=== PATIENT | male | born 2000 | race Caucasian/White ===

== ENCOUNTER 2022-04-08 08:06 | Inpatient (IN) | payer OTHER ==
[~2022-04-08] VITALS: Ht 180.3 cm; Wt 79.7 kg
[2022-04-08 10:39] LABS: HEMATOCRIT 43.3 % (42.0-52.0); HEMOGLOBIN 14.4 g/dl (13.5-17.5); MEAN CORPUSCULAR HEMOGLOBIN 28.5 pg (27.0-33.0); MEAN CORPUSCULAR HGB CONC 33.3 g/dl (32.0-36.5); MEAN CORPUSCULAR VOLUME 85.7 fl (80.0-96.0); PLATELET COUNT, AUTOMATED 297 10^3/uL (150-450); RED BLOOD COUNT 5.05 10^6/uL (4.30-6.10); WHITE BLOOD COUNT 11.1 10^3/uL (4.0-10.0)
[2022-04-08 11:01] LABS: BARBITURATES URINE NEGATIVE (NEGATIVE)
[2022-04-08 11:02] LABS: AMPHETAMINES LEVEL URINE NEGATIVE (NEGATIVE); BENZODIAZEPINES URINE NEGATIVE (NEGATIVE); CANNABINOIDS URINE NEGATIVE (NEGATIVE); COCAINE METABOLITE URINE NEGATIVE (NEGATIVE); METHADONE URINE NEGATIVE (NEGATIVE); OPIATES URINE NEGATIVE (NEGATIVE); PHENCYCLIDINE URINE NEGATIVE (NEGATIVE)
[2022-04-08 11:03] LABS: ETHYL ALCOHOL (ETHANOL) 0.004 % (0.000-0.010)
[2022-04-08 11:05] LABS: BILIRUBIN,DIRECT 0.4 MG/DL (<0.4); CPK CREATINE PHOSPHOKINASE 52 U/L (46-171); SALICYLATE LEVEL < 3.0 MG/DL (<30)
[2022-04-08 11:06] LABS: ACETAMINOPHEN LEVEL < 2.0 UG/ML (10.0-20.0); ALBUMIN 3.8 G/DL (3.2-5.2); ALKALINE PHOSPHATASE 84 U/L (46-116); ALT/SGPT < 9 U/L (7.0-40); AST/SGOT 13 U/L (<34); BILIRUBIN,TOTAL 1.3 MG/DL (0.3-1.2); BLOOD UREA NITROGEN 9 MG/DL (9-23); CALCIUM LEVEL 9.7 MG/DL (8.5-10.1); CARBON DIOXIDE LEVEL 29 MMOL/L (20-31); CHLORIDE LEVEL 102 MMOL/L (98-107); CREATININE FOR GFR 0.94 MG/DL (0.70-1.30); GLUCOSE, FASTING 99 MG/DL (60-100); POTASSIUM SERUM 3.6 MMOL/L (3.5-5.1); SODIUM LEVEL 140 MMOL/L (136-145); TOTAL PROTEIN 7.2 G/DL (5.7-8.2)
[2022-04-08 11:07] LABS: THYROID STIMULATING HORMONE 1.671 uIU/ML (0.48-4.17)
[2022-04-08] MEDS ORDERED: MOM 30ML SUSPENSION UDC PO PRN (15:35)
[2022-04-08] MEDS ORDERED: HOME MED LIST COMPLETE! XX SCH (16:40)
[2022-04-09 06:33] VITALS: BP 143/63
[2022-04-09] MEDS: NICOTINE 21MG/24HR 1 EA TRANSDERMAL TD SCH (09:00)
[2022-04-09] MEDS: ESCITALOPRAM OXALATE 10 MG TAB (LEXAPRO) PO SCH (10:59)
[2022-04-09 16:24] VITALS: BP 131/60
[2022-04-10 06:32] VITALS: BP 113/59
[2022-04-10] MEDS: ESCITALOPRAM OXALATE 10 MG TAB (LEXAPRO) PO SCH (08:26)
[2022-04-10] MEDS: NICOTINE 21MG/24HR 1 EA TRANSDERMAL TD SCH (08:27)
[2022-04-10 19:34] VITALS: BP 128/77
[2022-04-11 06:23] VITALS: BP 129/67
[2022-04-11] MEDS: NICOTINE 21MG/24HR 1 EA TRANSDERMAL TD SCH (08:48)
[2022-04-11] MEDS: ESCITALOPRAM OXALATE 10 MG TAB (LEXAPRO) PO SCH (08:48)
[2022-04-11 16:43] VITALS: BP 125/64
[2022-04-12 06:23] VITALS: BP 122/61
[2022-04-12] MEDS: NICOTINE 21MG/24HR 1 EA TRANSDERMAL TD SCH (09:00)
[2022-04-12] MEDS: ESCITALOPRAM OXALATE 10 MG TAB (LEXAPRO) PO SCH (09:17)
[2022-04-12 16:25] VITALS: BP 133/68
[2022-04-13 06:19] VITALS: BP 116/16
[2022-04-13] MEDS: PROPRANOLOL 10 MG TAB PO PRN (08:41)
[2022-04-13] MEDS: NICOTINE 21MG/24HR 1 EA TRANSDERMAL TD SCH (08:42)
[2022-04-13] MEDS: ESCITALOPRAM OXALATE 10 MG TAB (LEXAPRO) PO SCH (08:42)
[2022-04-13 16:47] VITALS: BP 118/63
[2022-04-13] MEDS: hydrOXYzine 50 MG TAB PO PRN (20:22)
[2022-04-13] MEDS: traZODone 50 MG TAB PO PRN (22:01)
[2022-04-14 06:09] VITALS: BP 135/63
[2022-04-14] MEDS: NICOTINE 21MG/24HR 1 EA TRANSDERMAL TD SCH (09:00)
[2022-04-14] MEDS: ESCITALOPRAM OXALATE 10 MG TAB (LEXAPRO) PO SCH (09:07)
[2022-04-14] MEDS: hydrOXYzine 50 MG TAB PO PRN ×2 (09:08→15:08)
[2022-04-14 18:20] VITALS: BP 119/58
[2022-04-14] MEDS: traZODone 50 MG TAB PO PRN (22:28)
[2022-04-15 06:06] VITALS: BP 139/72
[2022-04-15] MEDS: NICOTINE 21MG/24HR 1 EA TRANSDERMAL TD SCH (09:00)
[2022-04-15] MEDS: ESCITALOPRAM OXALATE 5MG TABLET (LEXAPRO) PO SCH (09:13)
[2022-04-15] MEDS: hydrOXYzine 50 MG TAB PO PRN ×2 (12:37→20:02)
[2022-04-15] MEDS: MAALOX 30 ML SUSP *UDC PO PRN (16:09)
[2022-04-15 19:06] VITALS: BP 147/63
[2022-04-15] MEDS: RAMELTEON 8 MG TAB (ROZEREM) PO PRN (21:09)
[2022-04-16 06:24] VITALS: BP 121/55
[2022-04-16] MEDS: ESCITALOPRAM OXALATE 5MG TABLET (LEXAPRO) PO SCH (08:32)
[2022-04-16] MEDS: NICOTINE 21MG/24HR 1 EA TRANSDERMAL TD SCH (08:33)
[2022-04-16] MEDS: hydrOXYzine 50 MG TAB PO PRN ×2 (14:31→20:42)
[2022-04-16 18:39] VITALS: BP 113/65
[2022-04-16] MEDS: traZODone 50 MG TAB PO PRN (23:34)
[2022-04-17 06:41] VITALS: BP 125/69
[2022-04-17] MEDS: NICOTINE 21MG/24HR 1 EA TRANSDERMAL TD SCH (08:15)
[2022-04-17] MEDS: ESCITALOPRAM OXALATE 5MG TABLET (LEXAPRO) PO SCH (08:16)
[2022-04-17] MEDS: MAALOX 30 ML SUSP *UDC PO PRN (08:54)
[2022-04-17] MEDS: hydrOXYzine 50 MG TAB PO PRN ×2 (11:24→20:49)
[2022-04-17] MEDS: PROPRANOLOL 10 MG TAB PO PRN (17:10)
[2022-04-17 19:35] VITALS: BP 129/69
[2022-04-17] MEDS ORDERED: OLANZapine ORAL DISINTEGRATING TAB 5MG PO ONE (19:35)
[2022-04-17] MEDS: traZODone 50 MG TAB PO PRN (22:26)
[2022-04-18 06:28] VITALS: BP 132/87
[2022-04-18] MEDS: NICOTINE 21MG/24HR 1 EA TRANSDERMAL TD SCH (09:00)
[2022-04-18] MEDS: FLUoxetine 20MG CAP PO SCH (10:05)
[2022-04-18] MEDS ORDERED: ONDANSETRON 4MG TAB PO PRN (12:30)
[2022-04-18 17:30] VITALS: BP 150/91
[2022-04-18] MEDS: hydrOXYzine 50 MG TAB PO PRN (18:18)
[2022-04-18] MEDS: ACETAMINOPHEN TAB 650MG DOSE (2X325MG) PO PRN (18:18)
[2022-04-18] MEDS: traZODone 50 MG TAB PO PRN (21:29)
[2022-04-19] MEDS: ACETAMINOPHEN TAB 650MG DOSE (2X325MG) PO PRN ×2 (06:24→17:40)
[2022-04-19 06:31] VITALS: BP 120/69
[2022-04-19 07:12] LABS: BASO % 0.3 % (0.0-1.0); EOS # 0.1 10^3/uL (0.0-0.5); EOS % 0.5 % (0.0-3.0); HEMATOCRIT 49.3 % (42.0-52.0); HEMOGLOBIN 16.2 g/dl (13.5-17.5); LYMPH # 1.3 10^3/uL (1.5-5.0); LYMPH % 11.2 % (24.0-44.0); MEAN CORPUSCULAR HEMOGLOBIN 28.2 pg (27.0-33.0); MEAN CORPUSCULAR HGB CONC 32.9 g/dl (32.0-36.5); MEAN CORPUSCULAR VOLUME 85.7 fl (80.0-96.0); MONO # 0.5 10^3/uL (0.0-0.8); MONO % 4.3 % (2.0-8.0); NEUTROPHILS % 83.5 % (36.0-66.0); PLATELET COUNT, AUTOMATED 312 10^3/uL (150-450); RED BLOOD COUNT 5.75 10^6/uL (4.30-6.10)
[2022-04-19 07:34] LABS: C REACTIVE PROTEIN QUANTITATIV < 0.40 MG/DL (<1.0); MAGNESIUM LEVEL 1.9 MG/DL (1.8-2.4)
[2022-04-19 07:35] LABS: BILIRUBIN,DIRECT 0.8 MG/DL (<0.4)
[2022-04-19 07:36] LABS: ALBUMIN 4.1 G/DL (3.2-5.2); ALKALINE PHOSPHATASE 86 U/L (46-116); ALT/SGPT < 9 U/L (7.0-40); AST/SGOT 9 U/L (<34); BILIRUBIN,TOTAL 2.4 MG/DL (0.3-1.2); BLOOD UREA NITROGEN 14 MG/DL (9-23); CALCIUM LEVEL 9.8 MG/DL (8.5-10.1); CARBON DIOXIDE LEVEL 31 MMOL/L (20-31); CHLORIDE LEVEL 98 MMOL/L (98-107); CREATININE FOR GFR 1.04 MG/DL (0.70-1.30); GLUCOSE, FASTING 102 MG/DL (60-100); POTASSIUM SERUM 4.2 MMOL/L (3.5-5.1); SODIUM LEVEL 138 MMOL/L (136-145); TOTAL PROTEIN 7.7 G/DL (5.7-8.2)
[2022-04-19] MEDS: NICOTINE 21MG/24HR 1 EA TRANSDERMAL TD SCH (09:00)
[2022-04-19 09:12] VITALS: BP 121/59
[2022-04-19] MEDS: FLUoxetine 20MG CAP PO SCH (09:45)
[2022-04-19] MEDS: hydrOXYzine 50 MG TAB PO PRN ×2 (12:47→19:29)
[2022-04-19] MEDS ORDERED: ISOVUE-370 76% 100ML VIAL As Ordered ONE (13:41)
[2022-04-19 17:46] VITALS: BP 130/62
[2022-04-19] MEDS: traZODone 50 MG TAB PO PRN (22:39)
[2022-04-20 06:18] VITALS: BP 123/69
[2022-04-20] MEDS: NICOTINE 21MG/24HR 1 EA TRANSDERMAL TD SCH (08:10)
[2022-04-20] MEDS: FLUoxetine 20MG CAP PO SCH (08:10)
[2022-04-20] MEDS: hydrOXYzine 50 MG TAB PO PRN ×2 (11:49→20:34)
[2022-04-20 17:53] VITALS: BP 131/71
[2022-04-20 20:34] VITALS: BP 152/79
[2022-04-20] MEDS: RAMELTEON 8 MG TAB (ROZEREM) PO PRN (20:34)
[2022-04-20] MEDS: PROPRANOLOL 10 MG TAB PO PRN (20:34)
[2022-04-20] MEDS: traZODone 50 MG TAB PO PRN (20:34)
[2022-04-21 06:40] VITALS: BP 112/57
[2022-04-21] MEDS: FLUoxetine 20MG CAP PO SCH (08:58)
[2022-04-21] MEDS: NICOTINE 21MG/24HR 1 EA TRANSDERMAL TD SCH (09:00)
[2022-04-21] MEDS ORDERED: FLUoxetine 20MG CAP PO ONE (11:15)
[2022-04-21] MEDS: hydrOXYzine 50 MG TAB PO PRN ×2 (12:04→19:18)
[2022-04-21 17:45] VITALS: BP 126/70
[2022-04-21] MEDS: MAALOX 30 ML SUSP *UDC PO PRN (22:26)
[2022-04-22 06:39] VITALS: BP 121/55
[2022-04-22] MEDS: FLUoxetine 20MG CAP PO SCH (09:06)
[2022-04-22] MEDS: hydrOXYzine 50 MG TAB PO PRN ×2 (11:55→19:16)
[2022-04-22 16:57] VITALS: BP 102/59
[2022-04-22] MEDS: traZODone 50 MG TAB PO PRN (20:59)
[2022-04-23 06:46] VITALS: BP 132/62
[2022-04-23] MEDS: GABAPENTIN 300 MG CAP PO PRN ×2 (08:38→18:11)
[2022-04-23] MEDS: FLUoxetine 20MG CAP PO SCH (08:39)
[2022-04-23] MEDS: busPIRone 10 MG TAB PO SCH ×2 (08:39→20:25)
[2022-04-23] MEDS: hydrOXYzine 50 MG TAB PO PRN ×2 (11:23→20:25)
[2022-04-23 16:14] VITALS: BP 130/60
[2022-04-23] MEDS ORDERED: ARIPiprazole 2 MG TAB PO SCH (21:00)
[2022-04-23] MEDS: traZODone 50 MG TAB PO PRN (22:13)
[2022-04-24 06:36] VITALS: BP 114/56
[2022-04-24] MEDS: FLUoxetine 20MG CAP PO SCH (08:12)
[2022-04-24] MEDS: busPIRone 10 MG TAB PO SCH (08:12)
[2022-04-24] MEDS: GABAPENTIN 300 MG CAP PO PRN (08:13)
[2022-04-24] MEDS ORDERED: GABA-282 PO (09:56)
[2022-04-24] MEDS ORDERED: BUSP10TA PO (09:56)
[2022-04-24] MEDS ORDERED: TRAZ-252 PO (09:56)
[2022-04-24] MEDS ORDERED: FLUO40CA PO (09:56)
[2022-04-24] MEDS ORDERED: ABIL1TAB13 PO (09:56)
== END 2022-04-24 12:25 | disposition home or self-care (01) | DRG 880 ==
LOC: M ED 08:06 → M ED INP 15:35 → M PSY 17:55
PROVIDERS: ADMIT Student in an Organized Health Care Education/Training Program; ATTEND Student in an Organized Health Care Education/Training Program
DX: F41.1 Generalized anxiety disorder (principal); R45.851 Suicidal ideations; F43.20 Adjustment disorder, unspecified; F10.10 Alcohol abuse, uncomplicated; F17.200 Nicotine dependence, unspecified, uncomplicated; F12.90 Cannabis use, unspecified, uncomplicated; R50.9 Fever, unspecified; K44.9 Diaphragmatic hernia without obstruction or gangrene

== ENCOUNTER 2022-05-15 07:27 | Emergency (ER) | payer OTHER ==
[~2022-05-15] VITALS: Ht 180.3 cm; Wt 81.6 kg
[~2022-05-15 07:27] MED LIST: ABIL1TAB13 PO; BUSP10TA PO; FLUO40CA PO; GABA-282 PO; TRAZ-252 PO
[2022-05-15 08:10] LABS: HEMATOCRIT 45.8 % (42.0-52.0); HEMOGLOBIN 15.1 g/dl (13.5-17.5); MEAN CORPUSCULAR HEMOGLOBIN 28.7 pg (27.0-33.0); MEAN CORPUSCULAR VOLUME 86.9 fl (80.0-96.0); PLATELET COUNT, AUTOMATED 289 10^3/uL (150-450); RED BLOOD COUNT 5.27 10^6/uL (4.30-6.10); WHITE BLOOD COUNT 6.2 10^3/uL (4.0-10.0)
[2022-05-15 09:12] LABS: ETHYL ALCOHOL (ETHANOL) 0.003 % (0.000-0.010)
[2022-05-15 09:13] LABS: ACETAMINOPHEN LEVEL < 2.0 UG/ML (10.0-20.0)
[2022-05-15 09:14] LABS: ALBUMIN 4.2 G/DL (3.2-5.2); ALKALINE PHOSPHATASE 81 U/L (46-116); ALT/SGPT 13 U/L (7.0-40); AST/SGOT 15 U/L (<34); BILIRUBIN,DIRECT 0.4 MG/DL (<0.4); BILIRUBIN,TOTAL 1.2 MG/DL (0.3-1.2); BLOOD UREA NITROGEN 12 MG/DL (9-23); CALCIUM LEVEL 9.8 MG/DL (8.5-10.1); CARBON DIOXIDE LEVEL 31 MMOL/L (20-31); CHLORIDE LEVEL 104 MMOL/L (98-107); CREATININE FOR GFR 0.88 MG/DL (0.70-1.30); GLUCOSE, FASTING 92 MG/DL (60-100); POTASSIUM SERUM 4.2 MMOL/L (3.5-5.1); SALICYLATE LEVEL < 3.0 MG/DL (<30); SODIUM LEVEL 140 MMOL/L (136-145); TOTAL PROTEIN 7.2 G/DL (5.7-8.2)
[2022-05-15] MEDS ORDERED: FLUO40CA PO (10:17)
[2022-05-15] MEDS ORDERED: ARIP1TAB4 PO (10:17)
[2022-05-15] MEDS ORDERED: BUSP10TA PO (10:17)
[2022-05-15] MEDS ORDERED: GABA-282 PO (10:17)
[2022-05-15] MEDS ORDERED: TRAZ-252 PO (10:17)
[2022-05-15] MEDS ORDERED: HOME MED LIST COMPLETE! XX SCH (10:20)
[2022-05-15 12:35] LABS: BARBITURATES URINE NEGATIVE (NEGATIVE)
[2022-05-15 12:36] LABS: AMPHETAMINES LEVEL URINE NEGATIVE (NEGATIVE); BENZODIAZEPINES URINE NEGATIVE (NEGATIVE); CANNABINOIDS URINE NEGATIVE (NEGATIVE); COCAINE METABOLITE URINE NEGATIVE (NEGATIVE); METHADONE URINE NEGATIVE (NEGATIVE); OPIATES URINE NEGATIVE (NEGATIVE); PHENCYCLIDINE URINE NEGATIVE (NEGATIVE)
[2022-05-15 16:54] VITALS: BP 128/63
== END 2022-05-15 16:55 | disposition home or self-care (01) ==
LOC: M ED 07:27
DX: F32.A Depression, unspecified (principal); R45.851 Suicidal ideations; F17.200 Nicotine dependence, unspecified, uncomplicated; Z79.891 Long term (current) use of opiate analgesic; Z79.899 Other long term (current) drug therapy

== ENCOUNTER 2022-06-29 23:41 | Inpatient (IN) | payer OTHER ==
[~2022-06-29] VITALS: Ht 180.3 cm; Wt 86.3 kg
[~2022-06-29 23:41] MED LIST changes: +ARIP1TAB4 PO
[2022-06-30 01:01] LABS: AMPHETAMINES LEVEL URINE NEGATIVE (NEGATIVE); BARBITURATES URINE NEGATIVE (NEGATIVE); BENZODIAZEPINES URINE NEGATIVE (NEGATIVE)
[2022-06-30 01:02] LABS: CANNABINOIDS URINE NEGATIVE (NEGATIVE); COCAINE METABOLITE URINE NEGATIVE (NEGATIVE); METHADONE URINE NEGATIVE (NEGATIVE); OPIATES URINE NEGATIVE (NEGATIVE); PHENCYCLIDINE URINE NEGATIVE (NEGATIVE)
[2022-06-30 01:03] LABS: BASO # 0.1 10^3/uL (0.0-0.2); BASO % 0.5 % (0.0-1.0); EOS # 0.3 10^3/uL (0.0-0.5); EOS % 2.5 % (0.0-3.0); HEMATOCRIT 44.1 % (42.0-52.0); HEMOGLOBIN 14.6 g/dl (13.5-17.5); LYMPH # 1.6 10^3/uL (1.5-5.0); LYMPH % 14.7 % (24.0-44.0); MEAN CORPUSCULAR HGB CONC 33.1 g/dl (32.0-36.5); MEAN CORPUSCULAR VOLUME 87.7 fl (80.0-96.0); MONO # 0.5 10^3/uL (0.0-0.8); MONO % 4.9 % (2.0-8.0); NEUTROPHILS # 8.5 10^3/uL (1.5-8.5); PLATELET COUNT, AUTOMATED 344 10^3/uL (150-450); RED BLOOD COUNT 5.03 10^6/uL (4.30-6.10)
[2022-06-30 01:14] LABS: ETHYL ALCOHOL (ETHANOL) < 0.003 % (0.000-0.010)
[2022-06-30 01:16] LABS: ACETAMINOPHEN LEVEL < 2.0 UG/ML (10.0-20.0); ALBUMIN 3.6 G/DL (3.2-5.2); ALKALINE PHOSPHATASE 85 U/L (46-116); ALT/SGPT 224 U/L (7.0-40); AST/SGOT 503 U/L (<34); BILIRUBIN,DIRECT 0.2 MG/DL (<0.4); BILIRUBIN,TOTAL 0.7 MG/DL (0.3-1.2); BLOOD UREA NITROGEN 15 MG/DL (9-23); CALCIUM LEVEL 8.9 MG/DL (8.5-10.1); CARBON DIOXIDE LEVEL 30 MMOL/L (20-31); CHLORIDE LEVEL 103 MMOL/L (98-107); CREATININE FOR GFR 0.93 MG/DL (0.70-1.30); GLUCOSE, FASTING 83 MG/DL (60-100); POTASSIUM SERUM 4.6 MMOL/L (3.5-5.1); SALICYLATE LEVEL < 3.0 MG/DL (<30); SODIUM LEVEL 138 MMOL/L (136-145); TOTAL PROTEIN 6.8 G/DL (5.7-8.2)
[2022-06-30 01:18] LABS: THYROID STIMULATING HORMONE 1.786 uIU/ML (0.48-4.17)
[2022-06-30 01:33] LABS: CPK CREATINE PHOSPHOKINASE 18727 U/L (46-171)
[2022-06-30] MEDS ORDERED: NS 2,450 ML in IV 1 EA IV ONE (01:55)
[2022-06-30] MEDS ORDERED: NS 1,000 ML IV SCH (04:15)
[2022-06-30] MEDS ORDERED: HOME MED LIST COMPLETE! XX SCH (04:50)
[2022-06-30 06:05] LABS: RSV AMPLIFICATION NEGATIVE (NEGATIVE)
[2022-06-30 06:14] LABS: HEMATOCRIT 41.4 % (42.0-52.0); HEMOGLOBIN 13.5 g/dl (13.5-17.5); MEAN CORPUSCULAR HEMOGLOBIN 28.8 pg (27.0-33.0); MEAN CORPUSCULAR HGB CONC 32.6 g/dl (32.0-36.5); MEAN CORPUSCULAR VOLUME 88.5 fl (80.0-96.0); PLATELET COUNT, AUTOMATED 279 10^3/uL (150-450); RED BLOOD COUNT 4.68 10^6/uL (4.30-6.10); WHITE BLOOD COUNT 8.3 10^3/uL (4.0-10.0)
[2022-06-30 06:45] LABS: ALKALINE PHOSPHATASE 75 U/L (46-116); ALT/SGPT 178 U/L (7.0-40); AST/SGOT 344 U/L (<34); BILIRUBIN,TOTAL 0.5 MG/DL (0.3-1.2); BLOOD UREA NITROGEN 15 MG/DL (9-23); CARBON DIOXIDE LEVEL 28 MMOL/L (20-31); CHLORIDE LEVEL 107 MMOL/L (98-107); CREATININE FOR GFR 0.84 MG/DL (0.70-1.30); GLUCOSE, FASTING 101 MG/DL (60-100); POTASSIUM SERUM 4.3 MMOL/L (3.5-5.1); SODIUM LEVEL 141 MMOL/L (136-145); TOTAL PROTEIN 5.8 G/DL (5.7-8.2)
[2022-06-30 07:45] LABS: CPK CREATINE PHOSPHOKINASE 12281 U/L (46-171)
[2022-06-30 13:23] VITALS: BP 146/80
[2022-06-30 18:00] VITALS: BP 133/71
[2022-06-30 21:35] VITALS: BP 132/70
[2022-07-01 02:00] VITALS: BP 126/69
[2022-07-01 05:27] VITALS: BP 134/74
[2022-07-01 06:27] LABS: BASO # 0.1 10^3/uL (0.0-0.2); BASO % 0.8 % (0.0-1.0); EOS # 0.3 10^3/uL (0.0-0.5); EOS % 4.1 % (0.0-3.0); HEMATOCRIT 42.2 % (42.0-52.0); HEMOGLOBIN 13.7 g/dl (13.5-17.5); LYMPH # 1.9 10^3/uL (1.5-5.0); LYMPH % 25.9 % (24.0-44.0); MEAN CORPUSCULAR HEMOGLOBIN 28.6 pg (27.0-33.0); MEAN CORPUSCULAR HGB CONC 32.5 g/dl (32.0-36.5); MEAN CORPUSCULAR VOLUME 88.1 fl (80.0-96.0); MONO # 0.4 10^3/uL (0.0-0.8); MONO % 5.5 % (2.0-8.0); NEUTROPHILS # 4.7 10^3/uL (1.5-8.5); NEUTROPHILS % 63.3 % (36.0-66.0); PLATELET COUNT, AUTOMATED 279 10^3/uL (150-450); RED BLOOD COUNT 4.79 10^6/uL (4.30-6.10); WHITE BLOOD COUNT 7.5 10^3/uL (4.0-10.0)
[2022-07-01 06:55] LABS: BLOOD UREA NITROGEN 10 MG/DL (9-23); CALCIUM LEVEL 8.8 MG/DL (8.5-10.1); CARBON DIOXIDE LEVEL 29 MMOL/L (20-31); CHLORIDE LEVEL 106 MMOL/L (98-107); CREATININE FOR GFR 0.75 MG/DL (0.70-1.30); GLUCOSE, FASTING 91 MG/DL (60-100); POTASSIUM SERUM 4.2 MMOL/L (3.5-5.1); SODIUM LEVEL 141 MMOL/L (136-145)
[2022-07-01 07:10] LABS: CPK CREATINE PHOSPHOKINASE 3822 U/L (46-171)
[2022-07-01] MEDS: NS 1,000 ML IV SCH ×2 (08:25→15:36)
[2022-07-01 10:00] VITALS: BP 132/72
[2022-07-01 14:00] VITALS: BP 129/71
[2022-07-01 18:00] VITALS: BP 129/73
[2022-07-01 20:00] VITALS: BP 128/74
[2022-07-02] MEDS: NS 1,000 ML IV SCH
[2022-07-02 02:00] VITALS: BP 123/73
[2022-07-02] MEDS ORDERED: NS 1,000 ML IV SCH (05:00)
[2022-07-02 05:42] VITALS: BP 121/68
[2022-07-02 06:15] LABS: BASO # 0.1 10^3/uL (0.0-0.2); BASO % 0.8 % (0.0-1.0); EOS # 0.3 10^3/uL (0.0-0.5); EOS % 4.2 % (0.0-3.0); HEMATOCRIT 42.2 % (42.0-52.0); LYMPH % 26.2 % (24.0-44.0); MEAN CORPUSCULAR HEMOGLOBIN 28.9 pg (27.0-33.0); MEAN CORPUSCULAR HGB CONC 33.2 g/dl (32.0-36.5); MONO # 0.5 10^3/uL (0.0-0.8); MONO % 5.8 % (2.0-8.0); NEUTROPHILS # 4.9 10^3/uL (1.5-8.5); NEUTROPHILS % 62.7 % (36.0-66.0); PLATELET COUNT, AUTOMATED 291 10^3/uL (150-450); RED BLOOD COUNT 4.85 10^6/uL (4.30-6.10); WHITE BLOOD COUNT 7.8 10^3/uL (4.0-10.0)
[2022-07-02 06:43] LABS: BLOOD UREA NITROGEN 9 MG/DL (9-23); CALCIUM LEVEL 8.7 MG/DL (8.5-10.1); CARBON DIOXIDE LEVEL 30 MMOL/L (20-31); CHLORIDE LEVEL 106 MMOL/L (98-107); CREATININE FOR GFR 0.86 MG/DL (0.70-1.30); GLUCOSE, FASTING 89 MG/DL (60-100); POTASSIUM SERUM 4.2 MMOL/L (3.5-5.1); SODIUM LEVEL 140 MMOL/L (136-145)
[2022-07-02 07:04] LABS: CPK CREATINE PHOSPHOKINASE 1464 U/L (46-171)
[2022-07-02] MEDS ORDERED: NS 1,000 ML IV ONE ×2 (09:15→10:15)
[2022-07-02 10:00] VITALS: BP 128/75
[2022-07-02 14:00] VITALS: BP 119/71
[2022-07-02 19:57] VITALS: BP 130/73
[2022-07-03 01:30] VITALS: BP 135/85
[2022-07-03 05:30] VITALS: BP 129/66
[2022-07-03 05:48] LABS: BASO # 0.1 10^3/uL (0.0-0.2); BASO % 0.8 % (0.0-1.0); EOS # 0.3 10^3/uL (0.0-0.5); EOS % 3.7 % (0.0-3.0); HEMATOCRIT 43.2 % (42.0-52.0); HEMOGLOBIN 14.2 g/dl (13.5-17.5); LYMPH % 22.3 % (24.0-44.0); MEAN CORPUSCULAR HEMOGLOBIN 28.6 pg (27.0-33.0); MEAN CORPUSCULAR HGB CONC 32.9 g/dl (32.0-36.5); MEAN CORPUSCULAR VOLUME 86.9 fl (80.0-96.0); MONO # 0.5 10^3/uL (0.0-0.8); MONO % 5.9 % (2.0-8.0); NEUTROPHILS # 5.9 10^3/uL (1.5-8.5); NEUTROPHILS % 67.1 % (36.0-66.0); PLATELET COUNT, AUTOMATED 327 10^3/uL (150-450); RED BLOOD COUNT 4.97 10^6/uL (4.30-6.10); WHITE BLOOD COUNT 8.8 10^3/uL (4.0-10.0)
[2022-07-03 06:13] LABS: BLOOD UREA NITROGEN 7 MG/DL (9-23); CALCIUM LEVEL 8.6 MG/DL (8.5-10.1); CARBON DIOXIDE LEVEL 28 MMOL/L (20-31); CHLORIDE LEVEL 105 MMOL/L (98-107); CPK CREATINE PHOSPHOKINASE 859 U/L (46-171); CREATININE FOR GFR 0.76 MG/DL (0.70-1.30); GLUCOSE, FASTING 93 MG/DL (60-100); POTASSIUM SERUM 3.7 MMOL/L (3.5-5.1); SODIUM LEVEL 139 MMOL/L (136-145)
[2022-07-03] MEDS ORDERED: NS 1,000 ML IV ONE ×2 (08:45→10:50)
[2022-07-03] MEDS ORDERED: NICO2GUM PO (10:45)
[2022-07-03] MEDS: NS 1,000 ML IV SCH ×2 (12:27→22:22)
[2022-07-03 14:00] VITALS: BP 124/66
[2022-07-03] MEDS: NICOTINE POLACRILEX 2 MG GUM PO PRN (17:55)
[2022-07-03 22:00] VITALS: BP 130/74
[2022-07-03] MEDS ORDERED: CALCIUM CARBONATE 500 MG CHEW U/D PO ONE (22:15)
[2022-07-04 05:39] VITALS: BP 125/74
[2022-07-04 05:46] LABS: BASO # 0.1 10^3/uL (0.0-0.2); BASO % 0.9 % (0.0-1.0); EOS # 0.3 10^3/uL (0.0-0.5); EOS % 4.1 % (0.0-3.0); HEMATOCRIT 42.5 % (42.0-52.0); HEMOGLOBIN 14.1 g/dl (13.5-17.5); LYMPH # 2.2 10^3/uL (1.5-5.0); MEAN CORPUSCULAR HEMOGLOBIN 28.9 pg (27.0-33.0); MEAN CORPUSCULAR HGB CONC 33.2 g/dl (32.0-36.5); MEAN CORPUSCULAR VOLUME 87.1 fl (80.0-96.0); MONO # 0.5 10^3/uL (0.0-0.8); MONO % 6.3 % (2.0-8.0); NEUTROPHILS % 61.1 % (36.0-66.0); PLATELET COUNT, AUTOMATED 330 10^3/uL (150-450); RED BLOOD COUNT 4.88 10^6/uL (4.30-6.10); WHITE BLOOD COUNT 8.1 10^3/uL (4.0-10.0)
[2022-07-04 06:12] LABS: BLOOD UREA NITROGEN 7 MG/DL (9-23); CALCIUM LEVEL 8.8 MG/DL (8.5-10.1); CARBON DIOXIDE LEVEL 30 MMOL/L (20-31); CHLORIDE LEVEL 106 MMOL/L (98-107); CPK CREATINE PHOSPHOKINASE 455 U/L (46-171); CREATININE FOR GFR 0.76 MG/DL (0.70-1.30); GLUCOSE, FASTING 87 MG/DL (60-100); POTASSIUM SERUM 4.1 MMOL/L (3.5-5.1); SODIUM LEVEL 142 MMOL/L (136-145)
[2022-07-04] MEDS: NS 1,000 ML IV SCH ×3 (08:04→17:09)
[2022-07-04 14:00] VITALS: BP 125/74
[2022-07-04] MEDS: NICOTINE POLACRILEX 2 MG GUM PO PRN (16:16)
== END 2022-07-04 19:15 | DRG 918 ==
LOC: EDBD 23:41 → M ED 23:41 → M ED INP 06-30 04:11 → ENRESERV 06-30 12:53 → M MSPAV 06-30 13:18
PROVIDERS: ADMIT Internal Medicine; ATTEND General Practice
DX: T43.221A Poisoning by selective serotonin reuptake inhibitors, accidental (unintentional), initial encounter (principal); M62.82 Rhabdomyolysis; F33.3 Major depressive disorder, recurrent, severe with psychotic symptoms; F41.1 Generalized anxiety disorder; F17.200 Nicotine dependence, unspecified, uncomplicated; Z79.899 Other long term (current) drug therapy

== ENCOUNTER 2022-07-04 15:16 | Inpatient (IN) | payer OTHER ==
[~2022-07-04] VITALS: Ht 180.3 cm; Wt 81.3 kg
[~2022-07-04 15:16] MED LIST changes: +NICO2GUM PO
[2022-07-04] MEDS ORDERED: MOM 30ML SUSPENSION UDC PO PRN (15:35)
[2022-07-04] MEDS ORDERED: ACETAMINOPHEN TAB 650MG DOSE (2X325MG) PO PRN (15:35)
[2022-07-04] MEDS ORDERED: LORazepam 1 MG TAB PO PRN (15:35)
[2022-07-04] MEDS ORDERED: IBUPROFEN 400MG TAB PO PRN (15:35)
[2022-07-04] MEDS ORDERED: diphenhydrAMINE 25MG CAP PO PRN (15:35)
[2022-07-04] MEDS ORDERED: MAALOX 30 ML SUSP *UDC PO PRN (15:35)
[2022-07-04] MEDS ORDERED: OLANZapine 5 MG TAB PO PRN (15:35)
[2022-07-04] MEDS ORDERED: traZODone 50 MG TAB PO PRN (15:35)
[2022-07-04 19:48] VITALS: BP 129/62
[2022-07-05 06:26] VITALS: BP 119/73
[2022-07-05] MEDS: NICOTINE 21MG/24HR 1 EA TRANSDERMAL TD SCH (11:29)
[2022-07-05] MEDS: VENLAFAXINE **XR** 75MG CAPSULE PO SCH (15:42)
[2022-07-05 16:32] VITALS: BP 129/64
[2022-07-05] MEDS: MIRTAZAPINE 15 MG TAB PO SCH (20:00)
[2022-07-06 06:36] VITALS: BP 120/71
[2022-07-06] MEDS: VENLAFAXINE **XR** 75MG CAPSULE PO SCH (08:48)
[2022-07-06] MEDS: NICOTINE 21MG/24HR 1 EA TRANSDERMAL TD SCH (08:49)
[2022-07-06 16:47] VITALS: BP 136/67
[2022-07-06] MEDS: MIRTAZAPINE 15 MG TAB PO SCH (20:50)
[2022-07-07 06:50] VITALS: BP 162/88
[2022-07-07] MEDS: VENLAFAXINE **XR** 75MG CAPSULE PO SCH (09:34)
[2022-07-07] MEDS: NICOTINE 21MG/24HR 1 EA TRANSDERMAL TD SCH (09:35)
[2022-07-07 19:16] VITALS: BP 130/80
[2022-07-07] MEDS: MIRTAZAPINE 15 MG TAB PO SCH (20:15)
[2022-07-08 06:10] VITALS: BP 135/76
[2022-07-08] MEDS: VENLAFAXINE **XR** 75MG CAPSULE PO SCH (08:55)
[2022-07-08] MEDS: NICOTINE 21MG/24HR 1 EA TRANSDERMAL TD SCH (08:56)
[2022-07-08 17:47] VITALS: BP 126/61
[2022-07-08] MEDS: MIRTAZAPINE 7.5MG PER 1/2 TABLET PO SCH (20:07)
[2022-07-09 06:02] VITALS: BP 139/65
[2022-07-09] MEDS: VENLAFAXINE **XR** 75MG CAPSULE PO SCH (10:56)
[2022-07-09] MEDS: NICOTINE 21MG/24HR 1 EA TRANSDERMAL TD SCH (10:57)
[2022-07-09 18:00] VITALS: BP 134/62
[2022-07-09] MEDS: MIRTAZAPINE 7.5MG PER 1/2 TABLET PO SCH (20:16)
[2022-07-10 06:45] VITALS: BP 123/72
[2022-07-10] MEDS: VENLAFAXINE **XR** 75MG CAPSULE PO SCH (08:28)
[2022-07-10] MEDS: NICOTINE 21MG/24HR 1 EA TRANSDERMAL TD SCH (08:28)
[2022-07-10 18:58] VITALS: BP 114/61
[2022-07-10] MEDS: MIRTAZAPINE 7.5MG PER 1/2 TABLET PO SCH (20:56)
[2022-07-11 06:39] VITALS: BP 150/65
[2022-07-11] MEDS: VENLAFAXINE **XR** 75MG CAPSULE PO SCH (08:31)
[2022-07-11] MEDS: NICOTINE 21MG/24HR 1 EA TRANSDERMAL TD SCH (08:31)
[2022-07-11 16:23] VITALS: BP 125/60
[2022-07-11] MEDS: MIRTAZAPINE 7.5MG PER 1/2 TABLET PO SCH (21:00)
[2022-07-12 06:21] VITALS: BP 120/56
[2022-07-12] MEDS: NICOTINE 21MG/24HR 1 EA TRANSDERMAL TD SCH (09:27)
[2022-07-12] MEDS: VENLAFAXINE **XR** 75MG CAPSULE PO SCH (09:27)
[2022-07-12 18:00] VITALS: BP 138/65
[2022-07-12] MEDS: MIRTAZAPINE 7.5MG PER 1/2 TABLET PO SCH (20:40)
[2022-07-13 06:11] VITALS: BP 136/63
[2022-07-13] MEDS: NICOTINE 21MG/24HR 1 EA TRANSDERMAL TD SCH (09:37)
[2022-07-13] MEDS: VENLAFAXINE **XR** 75MG CAPSULE PO SCH (09:37)
[2022-07-13] MEDS ORDERED: VENL75CA47 PO (20:49)
[2022-07-13] MEDS ORDERED: MIRT-10 PO (20:49)
[2022-07-13] MEDS: MIRTAZAPINE 7.5MG PER 1/2 TABLET PO SCH (21:07)
[2022-07-14 06:27] VITALS: BP 119/1
[2022-07-14] MEDS: NICOTINE 21MG/24HR 1 EA TRANSDERMAL TD SCH (09:00)
[2022-07-14] MEDS: VENLAFAXINE **XR** 75MG CAPSULE PO SCH (09:06)
== END 2022-07-14 09:44 | disposition home or self-care (01) | DRG 882 ==
LOC: M PSY 19:58
PROVIDERS: ADMIT Psychiatry & Neurology Psychiatry; ATTEND Psychiatry & Neurology Psychiatry
DX: F43.23 Adjustment disorder with mixed anxiety and depressed mood (principal); M62.82 Rhabdomyolysis; F17.200 Nicotine dependence, unspecified, uncomplicated

== ENCOUNTER 2022-11-13 07:24 | Emergency (ER) | payer OTHER ==
[~2022-11-13] VITALS: Ht 180.3 cm; Wt 88.4 kg
[~2022-11-13 07:24] MED LIST changes: +MIRT-10 PO; +VENL75CA47 PO
[2022-11-13 07:25] VITALS: BP 129/75; TEMP 98.1; O2SAT 99
[2022-11-13] MEDS ORDERED: BUPR300T92 (09:34)
== END 2022-11-13 10:18 | disposition home or self-care (01) ==
LOC: M ED 07:24
DX: S16.1XXA Strain of muscle, fascia and tendon at neck level, initial encounter (principal); V47.5XXA Car driver injured in collision with fixed or stationary object in traffic accident, initial encounter; F17.290 Nicotine dependence, other tobacco product, uncomplicated; Z79.899 Other long term (current) drug therapy